=== PATIENT | male | born 1985 | race Caucasian/White ===

== ENCOUNTER 2025-03-21 11:11 | Day surgery (SDC) | payer BC, MEDICAID, SELFPAY ==
[2025-03-21] VITALS (12 sets, daily range): BP systolic 112–144; BP diastolic 65–99; PULSE 80–100; RESP 16–18; TEMP 36.2–36.7; O2SAT 90–99; BMI 34.4
[2025-03-21] MEDS: scopolamine 1 mg PATCH 1 PATCH TRANSDERMA (11:53)
[2025-03-21] MEDS: acetaminophen 1,000 MG/100 ML PIGGYBACK 400 MG IV (11:53)
[2025-03-21] MEDS: ketorolac 30 mg/mL INJ IVP (11:53)
[2025-03-21] MEDS: sodium chloride 0.9% 1,000 ML 30 ML IV (11:54)
[2025-03-21] MEDS: albuterol 2.5 mg/3 mL Neb INHALATION ×2 (12:27→18:39)
--- NOTE | 2025-03-21 12:27 | W.PM.OPSUD ---
Surgery/Procedure H&P Update DATE OF PROCEDURE: March 21, 2025 DATE H&P PERFORMED: 03/19/25 H&P UPDATE INFORMATION: I have reviewed H&P completed within last 30 days, I have examined patient prior to procedure and No changes to prior documentation PREOP DIAGNOSIS: Right distal bicep tendon rupture PRIMARY INDICATION FOR PROCEDURE: Right distal bicep tendon rupture PLANNED PROCEDURE: Operation Date: 03/21/25 13:20 Proposed Procedures p Distal Bicep Tendon Repair(Right) - Zachary Sheehan DO s Graft Augmentation(Right) - Zachary Sheehan DO
--- NOTE | 2025-03-21 14:34 | ANES.PREANE2 ---
Pre-Anesthetic Assessment Height/Weight: Height 1.75 m Weight 105.687 kg Temp Pulse Resp BP Pulse Ox O2 Del Method 97.2 F L 80 17 143/84 97 Room Air 03/21/25 11:47 03/21/25 11:47 03/21/25 11:47 03/21/25 11:47 03/21/25 11:47 03/21/25 11:47 Preop Diagnosis: Right distal bicep tendon rupture Operation Date: 03/21/25 13:20 Proposed Procedures p Distal Bicep Tendon Repair(Right) - Zachary Sheehan DO s Graft Augmentation(Right) - Zachary Sheehan DO Familial anesthetic complications: None Was Beta Kee taken within 24 hours: N/A Was Clonidine taken within 24 hours: N/A Last intake: Intake Last Liquid Date 03/20/25 Last Liquid Time 20:00 Last Solid Date 03/20/25 Last Solid Time 20:00 Social Tobacco and No alcohol Exam alert, oriented x 3, clear to auscultation bilaterally (coarse breath sounds b/l - RLL wheeze) and regular rate & rhythm Airway Mallampati: Class III Dentition: full Pulmonary Asthma RLL pneumonia diagnosed monday, placed on azithromycin. Last dose of medication is for tomorrow morning. Patient states breathing almost back to baseline. Some phlegm production yesterday, but today no productive cough/expectoration. Satting 97% on RA. GI Gastroesophageal Reflux Disease Metabolic Hyperlipidemia Anesthetic Plan ASA status: 2 Anesthesia: General Risk of > 500 ml blood loss (7ml/kg in children): No Medications/Allergies Home Medications ?Medication ?Instructions ?Recorded ?Confirmed ?Last Taken ?Type atorvastatin 20 mg tablet 20 mg PO DAILY 07/29/24 03/20/25 03/19/25 History hydroxyzine HCl 25 mg tablet 25 mg PO TID anxiety 07/29/24 03/20/25 03/21/25 History lidocaine 5 % topical patch 1 patch topical DAILY 07/29/24 03/20/25 Unknown History losartan 25 mg tablet 25 mg PO DAILY 07/29/24 03/20/25 03/19/25 History omeprazole 40 mg capsule,delayed 40 mg PO DAILY 07/29/24 03/20/25 03/19/25 History release fluticasone 250 mcg-salmeterol 50 1 inh inhalation BID 11/04/24 03/20/2525 History mcg/dose blistr powdr for inhalation (Advair Diskus) aripiprazole 10 mg tablet (Abilify) 10 mg PO DAILY #30 tabs 02/03/25 03/20/25 03/21/25 Rx mirtazapine 15 mg tablet 15 mg PO BEDTIME #30 tabs 02/03/25 03/20/25 03/19/25 Rx albuterol sulfate 90 mcg/actuation 2 puff inhalation QID 03/21/25 03/21/25 03/20/25 History aerosol inhaler (Ventolin HFA) amoxicillin 875 mg-potassium 1 tab PO BID 03/21/25 03/21/25 03/21/25 History clavulanate 125 mg tablet azithromycin 250 mg tablet 250 mg PO DAILY 03/21/25 03/21/25 03/21/25 History prednisone 20 mg tablet 20 mg PO DAILY 03/21/25 03/21/25 03/21/25 History Allergies Allergy/AdvReac Type Severity Reaction Status Date / Time No Known Allergies Allergy Unverified 03/19/25 08:45 Current Medications Generic Name Dose Route Start Last Admin Trade Name Freq PRN Reason Stop Dose Admin Sodium Chloride 1,000 mls @ 30 mls/hr 03/21/25 11:30 03/21/25 11:54 Sodium Chloride 0.9% IV 03/22/25 11:29 30 mls/hr .Q24H HOA Administration PFSH Anesthesia Medical History Psychiatric care Social History Smoking and tobacco/nicotine status: current every day tobacco/nicotine user
[2025-03-21] MEDS: ceFAZolin 2,000 MG in sodium chloride 0.9% (plus) 50 ML 100 MG IV (15:03)
[2025-03-21] MEDS: ROPivacaine 0.5% SDV 30 mL 150 MG INJECTION (17:28)
[2025-03-21] MEDS: lidocaine 1% 10 ML INJ XX (17:28)
--- NOTE | 2025-03-21 17:50 | P.BOP_ITS ---
Date of Procedure: [03/21/2025] Surgeon: [Dr. Sheehan DO] Patient Consumer Marketer(s): [Hemal Sheehan PA-C] Procedure(s) performed: [Right distal biceps tendon repair] Findings of the procedure(s): [Right distal biceps tendon tear. Procedure went well and his plan] Estimated blood loss: [5ml] Specimen(s) removed: [n/a] Post-operative diagnosis: [Right distal biceps tendon]
--- NOTE | 2025-03-21 17:50 | PM.PACU ---
PACU note Narrative: Patient seen and examined in recovery was brought back to recovery in stable condition. At this point in time dressings on in place clean dry and intact fingertips are warm well-perfused brisk capillary refill less than 2 seconds. Patient is able to follow commands sensations intact to light touch distally to the fingers at the radial ulnar and median nerve distribution, he is able to perform all cardinal hand movements of thumbs up, A-OK, spread fingers, cross fingers, wrist extension and wrist flexion. AIN/PIN/radial/ulnar/median nerve intact. Patient intraoperatively after tourniquet was down and radial pulse 2+ prior to splint being applied Exam: somnolent, arousable (Able to follow commands) and vital signs stable Disposition: discharged
--- NOTE | 2025-03-21 18:04 | P.OP_ITS ---
Operative Report Date of procedure: March 21, 2025 Surgeon: Zachary Sheehan DO [place] Vessel Operator: Hemal Sheehan PA-C: PA was necessary for assistance in this case with hand positioning to execute the procedure, retraction and protection of neurovascular structures as well as to assist with wound closure and dressing application. Condition: stable Disposition: same day Procedure: Pre-op diagnosis: Right distal bicep tendon rupture Post-op diagnosis: Same,subacute to chronic tear Procedure done: Right distal bicep tendon repair (Modifier 22?increased procedural services: Surgery took twice as long as was twice as complex as a standard distal bicep repair given the chronicity of the injury being greater than 4 weeks out with significant scarring as well as complex venous plexus over distal bicep insertion requiring meticulous dissection hemoclips for accessory branches to mobilize for visualization) Implants: Arthrex bio composite distal bicep tendon repair kit with Endobutton 4X surgical hemoclips Surgeon: Zachary Sheehan DO [place] Vessel Operator: Hemal Sheehan PA-C: PA was necessary for assistance in this case with hand positioning to execute the procedure, assistance with tendon repair prep and securing of tendon repair retraction and protection of neurovascular structures as well as to assist with wound closure and dressing application. Anesthesia: General Estimated blood loss: 5 mL Tourniquet time: 100minutes IV fluids: 700 cc Urine output: None Complications: None Findings: See operative report. Condition: stable Disposition: same day Brief History: Patient is a pleasant 39-year-old male who was using a sledgehammer felt a pop in his right elbow and has a deformity of his bicep tendon we confirmed on MRI after working up in the outpatient setting to have a distal bicep tendon rupture. Patient states this is roughly 4 to 6 weeks out from injury. Given his young age and an active and goal to preserve strengh and recommendation would be for a right distal bicep tendon repair just for his high activity level and maintaining of some supination strength. We talked about the ins and outs procedure the risk benefits complication alternatives with surgery and through shared decision making patient like to proceed with surgical intervention. All questions at this time. Plan would be for a right distal bicep tendon repair with possible graft augmentation. All questions answered at this time. Procedure: Patient was seen by the preoperative holding area. Consent was reviewed and signed with patient. Correct extremity was then subsequently marked. Patient then was evaluated anesthesia once cleared for surgery was taken back to the operative suite kept in supine position all bony prominences well-padded patient appropriate care to bed. He was kept on hospital gurney and then subsequent armboard was applied to the right upper extremity. Patient then underwent anesthesia per the anesthesia part was probably anesthetized we prepped and draped the right upper extremity in standard orthopedic fashion. Final timeout performed. Patient did appropriate preoperative antibiotics. A nonsterile tourniquet was applied to the right upper arm and an Esmarch tourniquet was used exsanguinate the right upper extremity tourniquet was insufflated to 250 mmHg. At this point time I performed a standard 3-4 cm incision in oblique fashion centering directly over the radial tuberosity that was confirmed on fluoroscopic imaging preoperative knee. The preplanned incision site. I made incision with sharp scalpel incision and switch to Littler dissection scissors. Patient did have noticeably large cephalic veins throughout the antecubital fossa which these were dissected out and protected throughout the procedure. At this point in time I then utilized blunt finger dissection proximally and this was noted of patient had bicep tendon being significantly scarred. At this point in time was identified patient had Norm plaques fibrous pseudo tendon that communicated given the chronicity of the injury down to the insertion site. I subsequently split this fibrous pseudo tendon and patient was found to have the ruptured stump just proximal to the antecubital fossa. At this point in time I utilize dissection scissors to dissect out the pseudo tendon around the actual stump of the distal bicep tendon rupture. This was never noted being retracted roughly 4 cm. At this point in time utilize blunt dissection to mobilize this tendon. Given the scarring this required increased release of adhesions then standard. Next I then subsequently utilized dissection scissors and sharp scalpel excision to trim up the tendon to good-quality tendinous tissue for healing. At this point in time placed an Allis clamp and the end of the stitch tension was held neurovascular structures were protected and subsequently placed a #2 fiber loop in standard fashion. This was placed roughly 4 to 5 cm up through the tendon all the way down distally to the stump. I then subsequently cut the ends of the suture and then passed these through an Endobutton in standard Arthrex fashion and then this was held while we prepped the repair site. At this point in time once again utilizing my certified pathology assistant we performed gentle spreading blunt dissection down over to the radial tuberosity. And followed the same tract of where the tendon had ruptured and scarred. At this point in time identified the pseudo tendon this tunneled underneath patient's complex venous plexus system directly over the radial tuberosity. At this point in time I had to perform meticulous dissection around this venous plexus to dissect out any adhesions and to create the standard tract that the previous tendon was. At this point in time there was a branch that in order for me to mobilize and get visualization of the direct insertion site I utilized a Hemoclip x 4 and then subsequently cauterized this vein the rest of the venous plexus was able to be meticulously dissected and was able to perform standard releases and mobilization of this plexus there were able to utilize GENWI's to work around this and had direct visualization of the radial tuberosity. At this point in time I I subsequently had my certified pathology assistant protect all neurovascular structures throughout this procedure. Given patient's complex venous network this demanded meticulous dissection under loupe magnification with once again use of hemoclips as well as release of scar tissue and adhesions at this required increased procedural services and increased time and demand then a standard distal bicep tendon repair likely due to patient's chronicity of the injury as well as complex anatomy. I then subsequently came down directly over the radial tuberosity. This is where the pseudo tendon insertion site was noted. I utilized a blunt elevator and bluntly remove the insertion site and the fibrous tissue of the pseudo tendon this was removed in its entirety to have a clear tract for the distal bicep tendon repair. The hand was kept in full supination once again to protect from any injury to the PIN. I then s ubsequently down directly over the radial tuberosity. I utilized a blunt periosteal elevator and elevated all along the radial tuberosity to scuffed up the bone for tendon healing as well as curette was used.. This point time I brought in fluoroscopic imaging to confirm and placed a small .062 K wire just to plan my piloted drill tunnel site. I then placed this just unit cortically and then confirmed to being slightly distal and ulnar and as a result I made adjustments with my guidepin to be in satisfactory placement centering over the tuberosity. In satisfactory fit position with multiple x-ray imaging. Once I was satisfied with this placement I then removed the guidepin and then once again keeping in full supination and retraction with just [place]'s I then subsequently utilized the Arthrex kit drill bit which would accommodate for the Endobutton to pass through. I then subsequently drilled bicortically with angling slightly distal and ulnar. After this was then done I then subsequently thoroughly irrigated removing of all any bone debris to prevent heterotopic ossification. At this point in time we then confirmed we had excellent tendon excursion and a satisfactory path with not interruption of any neurovascular structures throughout the repair and these were protected throughout the case. At this point in time I then loaded the Endobutton through the standard de ploying device this was placed then bicortical and the button was then flipped. I then utilized fluoroscopic imaging to confirm this was on the dorsal cortex of the radius and was on bone I then pulled before cinching this down. Once I pulled this was but was flipped and secured on the dorsal cortex. I then utilized free needles to pass up through the fiber loop and of the graft to have a modified sliding tensioning. Once again this did require increased attention to detail as the tract was under this venous plexus I subsequently utilized my certified pathology assistant and once again we utilized the track underneath this vasculature plexus to prevent compression while doing wrap repair. I subsequently worked through patient's standard limited anatomy tract once the button was flipped and the sutures were passed back on the tendon I then my certified pathology assistant then held the elbow in roughly 30 degrees of flexion and we slowly sequentially tightened the tendon repair down directly onto bone which had excellent bone to tendon interface in standard onlay fashion. This had excellent fixation and then subsequently I tied multiple square knots to secure this graft down. At this point time this completed our fixation I then cut all excess suture and then took final x-ray images to confirm satisfactory about the flap as well as patient had excellent tension on the bicep tendon. At this point in time thorou gh irrigation performed. Tourniquet was deflated. Patient's hemostasis was satisfactory patient had satisfactory pulsation of his visible neurovascular structures as well as palpable radial pulse and brisk capillary refill throughout the hand. At this point in time this was then closed in standard fashion of interrupted 3-0 Vicryl suture and Monocryl with Dermabond and Steri- Strips. Patient was then placed in a bulky long-arm splint at 90 degrees. Patient was then awaken from anesthesia and taken back to PACU in stable condition. Disposition: Patient taken back to PACU in stable condition recovering well. Will see appropriate discharge instructions pain medication postoperatively. In PACU we did assess his neurovascular status , He was able to perform all cardinal hand movements AIN/PIN/radial/ulnar/median nerve is intact as well as intraoperatively he had palpable radial pulse as well as brisk capillary refill less than 2 seconds throughout the right hand. Once again patient tolerated well without issues or complications keep the splint on in place we will follow- up with the patient in the office in 2 weeks. Patient understands to be nonweightbearing to the right extremity maintain splint till follow-up. All questions answered this time. I did update the postoperatively
--- NOTE | 2025-03-21 18:42 | SUR.PHASEII ---
PT WITH AUDIBLE WHEEZES. DENIES CHEST PAIN OR SHORTNESS OF BREATH. PRODUCTIVE COUGH NOTED. BREATHING TREATMENT GIVEN. REVIEWED CARE WITH NURSE EDGE CUTTING MACHINE OPERATOR.
--- NOTE | 2025-03-21 19:20 | ANE.PACU2 ---
Inpatient post-anesthesia follow up: Airway intact: Yes Vital signs: Temperature 98.1 F Pulse Rate 90 Respiratory Rate 16 Blood Pressure 136/93 Pulse Oximetry 93 Oxygen Delivery Me thod Room Air Oxygen Flow Rate 8 Fraction of Inspir ed Oxygen Hydration adequate: Yes Nausea and vomiting: No Pain level: 1 Mental status: Baseline
--- NOTE | 2025-03-21 19:32 | SUR.PHASEII ---
19:15 moderate relief of cough after breathing treatment. Mild wheezes in upper lobes.
== END 2025-03-21 19:20 | disposition home or self-care (01) ==
PROVIDERS: PCP Nurse Practitioner Family; Visit Provider Student in an Organized Health Care Education/Training Program
PROC: (CPT 24341; principal; 2025-03-21 13:10)
DX: S46.211A Strain of muscle, fascia and tendon of other parts of biceps, right arm, initial encounter (principal); K21.9 Gastro-esophageal reflux disease without esophagitis; E78.5 Hyperlipidemia, unspecified; J45.909 Unspecified asthma, uncomplicated; F17.200 Nicotine dependence, unspecified, uncomplicated; X50.9XXA Other and unspecified overexertion or strenuous movements or postures, initial encounter; Y93.89 Activity, other specified; Z79.899 Other long term (current) drug therapy
CPT/HCPCS: 24342; A4216; C1713; J0131; J0690; J1100; J1171; J1885; J2405; J2704; J2795; J3010; J7030; J7613; J9999